=== PATIENT | female | born 2000 | race Caucasian/White ===

== ENCOUNTER 2021-07-02 16:47 | Emergency (ER) | payer BC ==
[~2021-07-02] VITALS: Ht 160 cm; Wt 61.0 kg
[2021-07-02 19:21] VITALS: BP 123/77
== END 2021-07-02 19:10 | disposition home or self-care (01) ==
LOC: ER 16:47
DX: S60.511A Abrasion of right hand, initial encounter (principal); S09.90XA Unspecified injury of head, initial encounter; E07.9 Disorder of thyroid, unspecified; W17.89XA Other fall from one level to another, initial encounter; Y93.89 Activity, other specified; Y92.89 Other specified places as the place of occurrence of the external cause; Y99.8 Other external cause status
CPT/HCPCS: 70486; 73130; 81025; 99284